=== PATIENT | male | born 1985 | race Two or more races ===

== ENCOUNTER 2019-01-03 20:20 | Emergency (ER) | payer OTHER ==
[~2019-01-03] VITALS: Ht 188 cm; Wt 100.0 kg
[2019-01-03 21:05] VITALS: BP 153/95
== END 2019-01-04 00:46 | disposition left against medical advice (07) ==
LOC: ER 20:20
DX: M54.9 Dorsalgia, unspecified (principal); Z53.21 Procedure and treatment not carried out due to patient leaving prior to being seen by health care provider